=== PATIENT | female | born 1940 | race Caucasian/White ===

== ENCOUNTER 2018-03-12 06:02 | Day surgery (SDC) | payer MEDICARE, BC ==
[2018-03-11 11:34] LABS: BASOPHILS % (AUTO) 0.6 % (0-1); EOSINOPHILS # (AUTO) 0.3 X10'3 (0-0.9); EOSINOPHILS % (AUTO) 3.4 % (0-6); HEMATOCRIT 43.2 % (35.0-45.0); HEMOGLOBIN 14.4 g/dl (12.0-16.0); LYMPHOCYTES % (AUTO) 25.1 % (21-51); MEAN CORPUSCULAR HEMOGLOBIN 30.4 PG (27.0-31.0); MEAN CORPUSCULAR HGB CONC 33.2 % (33.0-36.5); MEAN CORPUSCULAR VOLUME 91.4 FL (78-98); MEAN PLATELET VOLUME 8.9 FL (7.4-10.4); MONOCYTES # (AUTO) 0.7 X10'3 (0-0.9); MONOCYTES % (AUTO) 9.6 % (2-12); NEUTROPHILS # (AUTO) 4.8 X10'3 (1.8-7.7); NEUTROPHILS % (AUTO) 61.3 % (42-75); PLATELET COUNT 265 X10'3 (140-440); RED BLOOD COUNT 4.72 X10'6 (4.20-5.60); RED CELL DISTRIBUTION WIDTH 13.8 % (11.5-14.5); WHITE BLOOD COUNT 7.8 X10'3 (4.5-11.0)
[2018-03-11 11:42] LABS: ALBUMIN 3.5 G/DL (3.4-5.0); ANION GAP 5 (8-16); BLOOD UREA NITROGEN 21 MG/DL (7-18); BUN/CREATININE RATIO 29.2 (6.6-38.0); CALCIUM 9.7 MG/DL (8.5-10.1); CHLORIDE 101 MMOL/L (99-107); CREATININE 0.72 MG/DL (0.40-0.90); GLUCOSE 104 MG/DL (70-104); POTASSIUM 3.9 MMOL/L (3.5-5.1); SODIUM 139 MMOL/L (135-145); TOTAL CARBON DIOXIDE 33.2 MMOL/L (24-32); eGFR 79 ML/MIN
[2018-03-11 11:45] LABS: INR 1.1 INR; PROTHROMBIN TIME 10.7 SECONDS (9.0-12.0)
[~2018-03-12] VITALS: Ht 160 cm; Wt 69.7 kg
[2018-03-12] VITALS (17 sets, daily range): BP systolic 109–190; BP diastolic 49–87
[2018-03-12] MEDS ORDERED: MIDAZolam 5mg/ml 2ml vial IV ONE (06:20)
[2018-03-12] MEDS ORDERED: LORazepam 0.5 MG tablet PO ONE (06:20)
[2018-03-12] MEDS ORDERED: diphenhydrAMINE 25mg capsule PO ONE (06:20)
[2018-03-12] MEDS ORDERED: morphine 10mg/ml inj. IV ONE (06:20)
[2018-03-12] MEDS ORDERED: atropine 0.1mg/ml 10ml syringe IV ONE (06:20)
[2018-03-12] MEDS ORDERED: normal saline 1000ml 1,000 ML IV SCH (06:20)
[2018-03-12] MEDS ORDERED: fentaNYL/PF 50MCG/1 ML 2ML syringe IV ONE (06:25)
[2018-03-12] MEDS ORDERED: MULT1CAP34 PO (06:35)
[2018-03-12] MEDS ORDERED: BIOT10004 (06:35)
[2018-03-12] MEDS ORDERED: METO-539 PO (06:35)
[2018-03-12] MEDS ORDERED: LISI-600 PO (06:35)
[2018-03-12] MEDS ORDERED: APIX5TAB3 PO (06:35)
[2018-03-12] MEDS ORDERED: TRIA1CAP6 PO (06:35)
[2018-03-12] MEDS ORDERED: LEVO125T PO (06:35)
== END 2018-03-12 11:50 | disposition home or self-care (01) ==
LOC: SSTAY O 06:02 → EDSTATUS 08:00 → SSTAY O 11:50
PROVIDERS: ATTEND Internal Medicine Cardiovascular Disease
DX: I48.1 Persistent atrial fibrillation (principal); I08.0 Rheumatic disorders of both mitral and aortic valves; I70.0 Atherosclerosis of aorta; I10 Essential (primary) hypertension; E78.5 Hyperlipidemia, unspecified; M85.88 Other specified disorders of bone density and structure, other site; M19.90 Unspecified osteoarthritis, unspecified site; K21.9 Gastro-esophageal reflux disease without esophagitis; E89.0 Postprocedural hypothyroidism; F10.21 Alcohol dependence, in remission; Z79.01 Long term (current) use of anticoagulants; Z90.49 Acquired absence of other specified parts of digestive tract; Z90.89 Acquired absence of other organs; Z88.3 Allergy status to other anti-infective agents; Z88.6 Allergy status to analgesic agent; Z88.2 Allergy status to sulfonamides; Z88.5 Allergy status to narcotic agent; Z87.01 Personal history of pneumonia (recurrent); Z87.09 Personal history of other diseases of the respiratory system; Z79.899 Other long term (current) drug therapy; Z98.890 Other specified postprocedural states; Z82.49 Family history of ischemic heart disease and other diseases of the circulatory system
CPT/HCPCS: 36415; 80048; 85025; 85610; 93005; 93312; J2250; J3010; J7030; Q0163; J0461

== ENCOUNTER 2020-12-25 15:58 | Outpatient (CLI) | payer MEDICARE, BC ==
[~2020-12-25 15:58] MED LIST: APIX5TAB3 PO; BIOT10004; LEVO125T PO; LISI20TA28 PO; METO-539 PO; MULT1CAP34 PO; TRIA1CAP6 PO
== END 2020-12-25 23:59 | disposition home or self-care (01) ==
LOC: CARD DIAG 15:58
PROVIDERS: ATTEND Internal Medicine Cardiovascular Disease
DX: I34.0 Nonrheumatic mitral (valve) insufficiency (principal); I48.91 Unspecified atrial fibrillation
CPT/HCPCS: 93306

== ENCOUNTER 2021-05-09 07:08 | Day surgery (SDC) | payer MEDICARE, BC ==
[2021-05-08 09:04] LABS: BASOPHILS % (AUTO) 0.7 % (0-1); EOSINOPHILS # (AUTO) 0.2 X10'3 (0-0.9); EOSINOPHILS % (AUTO) 2.5 % (0-6); HEMATOCRIT 38.3 % (35.0-45.0); HEMOGLOBIN 12.8 g/dl (12.0-16.0); LYMPHOCYTES # (AUTO) 1.7 X10'3 (1.1-4.8); MEAN CORPUSCULAR HEMOGLOBIN 28.6 PG (27.0-31.0); MEAN CORPUSCULAR HGB CONC 33.5 g/dL (33.0-36.5); MEAN CORPUSCULAR VOLUME 85.3 FL (78-98); MONOCYTES # (AUTO) 0.6 X10'3 (0-0.9); MONOCYTES % (AUTO) 10.3 % (2-12); NEUTROPHILS # (AUTO) 3.7 X10'3 (1.8-7.7); NEUTROPHILS % (AUTO) 59.5 % (42-75); PLATELET COUNT 299 X10'3 (140-440); RED BLOOD COUNT 4.49 X10'6 (4.20-5.60); RED CELL DISTRIBUTION WIDTH 15.2 % (11.5-14.5); WHITE BLOOD COUNT 6.3 X10'3 (4.5-11.0)
[2021-05-08 09:12] LABS: APTT 27 SECONDS (22-32)
[2021-05-08 09:17] LABS: ALBUMIN 3.7 G/DL (3.4-5.0); ANION GAP 8 (8-16); BLOOD UREA NITROGEN 14 MG/DL (7-18); BUN/CREATININE RATIO 19.2 (6.6-38.0); CALCIUM 9.6 MG/DL (8.5-10.1); CHLORIDE 98 MMOL/L (99-107); CREATININE 0.73 MG/DL (0.40-0.90); GLUCOSE 113 MG/DL (70-104); POTASSIUM 3.9 MMOL/L (3.5-5.1); SODIUM 135 MMOL/L (135-145); TOTAL CARBON DIOXIDE 28.9 MMOL/L (24-32); eGFR 77 ML/MIN
[2021-05-09] VITALS (10 sets, daily range): BP systolic 118–177; BP diastolic 53–77
[~2021-05-09] VITALS: Ht 160 cm; Wt 73.1 kg
[2021-05-09] MEDS ORDERED: diphenhydrAMINE 25mg capsule PO PRN (07:30)
[2021-05-09] MEDS ORDERED: normal saline 1,000 ML IV SCH (07:30)
[2021-05-09] MEDS ORDERED: methylPREDNISolone sod succ 125mg/2ml vial IV ONE (07:30)
[2021-05-09] MEDS ORDERED: LIDOcaine/PRILOcaine 5gm cream TP ONE (07:30)
[2021-05-09] MEDS ORDERED: OMEG1CAP46 PO (07:36)
[2021-05-09] MEDS ORDERED: verapamil 2.5 mg/ml inj IV ONE (09:21)
[2021-05-09] MEDS ORDERED: midazolam 1 mg/ML 2ml injection ONE (09:21)
[2021-05-09] MEDS ORDERED: fentaNYL/PF 50MCG/1 ML 2ML syringe ONE (09:21)
[2021-05-09] MEDS ORDERED: LIDOcaine 1% (10mg/ml)w/preservative injection 20ml MDV ONE (09:22)
[2021-05-09] MEDS ORDERED: iohexol 350 MG/ML 50ML vial IV ONE (09:22)
[2021-05-09] MEDS ORDERED: iohexol 350MG/ML 100ml bottle IV ONE (09:22)
[2021-05-09] MEDS ORDERED: heparin 1,000unit/ml 10ml vial 10 ML ONE (09:22)
[2021-05-09] MEDS ORDERED: nitroGLYCERIN-Tridil 50MG/D5W 250 ML IV ONE (09:28)
[2021-05-09 10:31] LABS: ISTAT HGB ART 12.9 g/dl (12.0-16.0); ISTAT Hct ART 38 %PCV (35-48); ISTAT O2 SATURATION ARTERIAL 97 % (95-98); ISTAT SOURCE ART
[2021-05-09] MEDS ORDERED: acetaminophen 325mg tablet PO PRN (11:25)
[2021-05-09] MEDS ORDERED: HYDROcodone/acetaminophen 10/325mg tab PO PRN (11:50)
[2021-05-09] MEDS ORDERED: HYDROcodone/acetaminophen 5mg/325mg tablet PO PRN (11:50)
[2021-05-09 11:52] LABS: ISTAT Hct MIX 37 %PCV (35-48); ISTAT O2 SATURATION MIX VENOUS 73 % (60-80); ISTAT SOURCE VEN
== END 2021-05-09 15:05 | disposition home or self-care (01) ==
LOC: SSTAY O 07:08
PROVIDERS: ATTEND Internal Medicine Cardiovascular Disease
DX: R06.02 Shortness of breath (principal); R53.83 Other fatigue; I25.10 Atherosclerotic heart disease of native coronary artery without angina pectoris; I11.0 Hypertensive heart disease with heart failure; I50.30 Unspecified diastolic (congestive) heart failure; I48.0 Paroxysmal atrial fibrillation; E78.5 Hyperlipidemia, unspecified; I47.1 Supraventricular tachycardia; Z72.89 Other problems related to lifestyle; Z88.8 Allergy status to other drugs, medicaments and biological substances
CPT/HCPCS: 36415; 76937; 80048; 82803; 85014; 85025; 85610; 85730; 93005; 93460; 99152; 99153; C1751; C1769; C1894; J1644; J2250; J2930; J3010; J3490; J7030; Q9967; A4620; A5120; A6258

== ENCOUNTER 2022-06-27 08:19 | Outpatient (CLI) | payer MEDICARE, BC ==
[2022-06-27] VITALS (10 sets, daily range): BP systolic 152–232; BP diastolic 69–125
[~2022-06-27 08:19] MED LIST changes: -METO-539 PO; +OMEG1CAP46 PO; -TRIA1CAP6 PO; +TRIA1CAP88 PO
== END 2022-06-27 23:59 | disposition home or self-care (01) ==
LOC: RAD 08:19
PROVIDERS: ATTEND Internal Medicine Cardiovascular Disease
DX: I50.22 Chronic systolic (congestive) heart failure (principal); R06.02 Shortness of breath; I48.91 Unspecified atrial fibrillation
CPT/HCPCS: 78452; 93017; A9500

== ENCOUNTER 2023-01-14 07:24 | Inpatient (IN) | payer MEDICARE, BC ==
[2023-01-07 10:01] LABS: BASOPHILS # (AUTO) 0.1 X10'3 (0-0.2); BASOPHILS % (AUTO) 1.1 % (0-1); EOSINOPHILS # (AUTO) 0.3 X10'3 (0-0.9); EOSINOPHILS % (AUTO) 3.6 % (0-6); LYMPHOCYTES # (AUTO) 1.5 X10'3 (1.1-4.8); LYMPHOCYTES % (AUTO) 19.9 % (21-51); MEAN CORPUSCULAR HEMOGLOBIN 27.9 PG (27.0-31.0); MEAN CORPUSCULAR HGB CONC 32.7 g/dL (33.0-36.5); MEAN CORPUSCULAR VOLUME 85.2 FL (78-98); MEAN PLATELET VOLUME 8.2 FL (7.4-10.4); MONOCYTES # (AUTO) 0.8 X10'3 (0-0.9); NEUTROPHILS # (AUTO) 4.9 X10'3 (1.8-7.7); NEUTROPHILS % (AUTO) 64.4 % (42-75); PRE OP HEMATOCRIT 38.8 % (35.0-45.0); PRE OP HEMOGLOBIN 12.7 g/dL (12.0-16.0); PRE OP PLATELET COUNT 293 X10'3 (140-440); PRE OP WHITE BLOOD COUNT 7.6 10'3 (4.8-10.8); RED BLOOD COUNT 4.55 X10'6 (4.20-5.60); RED CELL DISTRIBUTION WIDTH 15.2 % (11.5-14.5)
[2023-01-07 10:19] LABS: ALBUMIN 3.6 G/DL (3.4-5.0); ALBUMIN/GLOBULIN RATIO 0.9 (1.1-1.5); ALKALINE PHOSPHATASE 121 IU/L (46-116); BLOOD UREA NITROGEN 14 MG/DL (7-18); BUN/CREATININE RATIO 19.4 (10.0-20.0); CALCIUM 9.9 MG/DL (8.5-10.1); CHLORIDE 99 MMOL/L (99-107); CREATININE 0.72 MG/DL (0.40-0.90); PRE OP ALT 44 U/L (30-65); PRE OP ANION GAP 6 (8-16); PRE OP AST 31 U/L (10-37); PRE OP BILIRUB, TOTAL 0.6 MG/DL (0.0-1.0); PRE OP GLUCOSE 127 MG/DL (70-104); PRE OP POTASSIUM 3.7 MMOL/L (3.4-5.1); PRE OP SODIUM 135 MMOL/L (135-145); TOTAL CARBON DIOXIDE 30.2 MMOL/L (24-32); TOTAL PROTEIN 7.8 G/DL (6.4-8.2); eGFR 78 ML/MIN
[~2023-01-14] VITALS: Ht 160 cm; Wt 74.6 kg
[2023-01-14] VITALS (33 sets, daily range): BP systolic 113–170; BP diastolic 54–105; PULSE 73–112; RESP 8–23; TEMP 97.8–98.9; O2SAT 83–98
[~2023-01-14 07:24] MED LIST changes: -BIOT10004; +BIOT10004 PO; +CHOL20004 PO; +FURO20TA4 PO; -LISI20TA28 PO; +LISI40TA13 PO; +cefazolin 2gm/D5W 100mL 100 ML IV ONE; +famotidine 20mg tablet PO ONE
[2023-01-14] MEDS: ringers solution, lacted 1,000 ML IV SCH ×2 (08:25→15:37)
[2023-01-14] MEDS ORDERED: BUPIVAcaine/PF 2.5 mg/ml (0.25%) 30ml vial ONE (09:09)
[2023-01-14] MEDS ORDERED: LIDOcaine 1% 30ml preserv. free vial ONE (09:09)
[2023-01-14] MEDS ORDERED: sevoflurane 250ml liquid IH ONE (09:18)
[2023-01-14] MEDS ORDERED: midazolam 1 mg/ML 2ml injection ONE (09:25)
[2023-01-14] MEDS ORDERED: fentaNYL/PF 50MCG/1 ML 2ML syringe ONE (09:25)
[2023-01-14] MEDS ORDERED: hydrALAZINE 20mg/ml inj. IV PRN ×2 (09:40→12:05)
[2023-01-14] MEDS ORDERED: proCHLORperazine 10 MG/2 ml inj IV PRN (09:40)
[2023-01-14] MEDS ORDERED: labetalol 20mg/4ml (5mg/ml) syringe IV PRN (09:40)
[2023-01-14] MEDS ORDERED: acetaminophen 1,000mg/100ml IV 100 ML IV PRN (09:40)
[2023-01-14] MEDS ORDERED: fentaNYL/PF 50MCG/1 ML 2ML syringe IV PRN (09:40)
[2023-01-14] MEDS ORDERED: ondansetron/PF 4mg/2ml inj IV PRN (09:40)
[2023-01-14] MEDS ORDERED: HYDROmorphone/PF 0.2 MG/ML SYRINGE IV PRN (09:40)
[2023-01-14] MEDS ORDERED: ringers solution, lacted 1,000 ML IV SCH (09:40)
[2023-01-14] MEDS ORDERED: dexamethasone sod phosphate 4mg/ml inj. ONE (09:47)
[2023-01-14] MEDS ORDERED: propofol inj 20 ML IV ONE (09:47)
[2023-01-14] MEDS ORDERED: ondansetron/PF 4mg/2ml inj ONE (09:47)
[2023-01-14] MEDS ORDERED: LIDOcaine 2% (20mg/ml) 5ml vial ONE (09:47)
[2023-01-14] MEDS ORDERED: rocuronium 10mg/ml inj IV ONE (09:47)
[2023-01-14] MEDS ORDERED: ePHEDrine 50MG/ML INJ. ONE ×2 (10:08→11:25)
[2023-01-14] MEDS ORDERED: neostigmine methylsulfate 1 MG/ML 10ml vial ONE ×2 (11:21→11:25)
[2023-01-14] MEDS ORDERED: glycopyrrolate 0.2mg/ml inj ONE ×2 (11:21→11:25)
--- NOTE | 2023-01-14 11:40 | NUR ---
PT ARRIVED TO RR VIA BED ACCOMPANIED BY DR. OCHOA-ANESTHESIA REPORT GIVEN, PT AWAKE AND PAINFUL, TAKING SHALLOW BREATHS D/T PAIN, VSS, DERMABOND TO LAP SITES X4 - CDI, F/C PLACED IN OR AND DRAINING YELLOW URINE, NEURO INTACT.
[2023-01-14] MEDS: fentaNYL/PF 50MCG/1 ML 2ML syringe IV PRN ×2 (12:00→12:08)
[2023-01-14] MEDS ORDERED: naloxone 0.4 mg/ml inj IV PRN (12:00)
[2023-01-14] MEDS: HYDROmorphone/PF 0.2 MG/ML SYRINGE IV PRN ×2 (12:14→12:51)
--- NOTE | 2023-01-14 13:34 | NUR ---
PT AWAKE, VSS, PT PAIN A BIT BETTER BUT SHARP PAIN TO LEFT SHOULDER/BACK BUT STILL 7/10 WHEN IT COMES, PT ABLE TO RELAX A BIT IN BETWEEN AND NOT WANTING ANY MORE NARCOTIC AT THIS TIME. TOLERATING ICE WATER, DILAUDID VEHICLE WINDOW TINTER ORDERED AND WILL BE SET UP.
[2023-01-14] MEDS: HYDROmorph/NS 0.2 mg/ml PCA 100 ML IV SCH ×7 (14:05→23:00)
--- NOTE | 2023-01-14 14:50 | NUR ---
PT VSS, PAIN MANAGEABLE WHEN ABLE TO RELAX AND BREATHE DEEP BUT OFTEN HAS SPASMS OF SHARP PAINS IN UPPER LEFT BACK AND SHOULDER - DILAUDID CADD HOOKED UP AND PT HAS BEEN EDUCATED REGARDING USE, PT UNDERSTANDS BUT IS HESITANT TO USE NARCOTIC BC IT MAKES HER FEEL "DRUGGED". LAP SITES - CDI, F/C-DRAINING, TOLERATING CLEAR LIQUIDS, REPORT CALLED TO CIVIL CLERK-ALL QUESTIONS ANSWERED, TAKEN WITH ALL BELONGINGS TO ROOM-COMPLAINT OF NAUSEA UPON ARRIVAL TO FLOOR, ABLE TO GIVE PT IV ZOFRAN BEFORE LEAVING PT UPSTAIRS, FAMILY IN ROOM, CIVIL CLERK IN TO RECEIVE PT.
[2023-01-14] MEDS: normal saline 1000ml 1,000 ML IV SCH ×2 (15:36→18:02)
--- NOTE | 2023-01-14 18:00 | NUR ---
I have reviewed and agree with interventions, assessments, and documentation by Astrid Berrios LVN.
--- NOTE | 2023-01-14 18:35 | NUR ---
Patient in room ORTHO 4022. I have received report from Astrid Orellana and had the opportunity to ask questions and assume patient care.
--- NOTE | 2023-01-14 19:00 | NUR ---
Patient states that she had a couple of mouthfulls of broth only as was feeling nauseated. Addendum: 01/15/23 at 0648 by Sharmila Jones RN Amended: Links added.
[2023-01-14] MEDS: ondansetron/PF 4mg/2ml inj IV PRN (20:14)
[2023-01-14] MEDS: lisinopril 20mg tablet PO SCH (20:49)
[2023-01-15] VITALS (7 sets, daily range): BP systolic 116–154; BP diastolic 55–79; PULSE 68–89; RESP 15–18; TEMP 97.9–99.2; O2SAT 89–97
[2023-01-15] MEDS: HYDROmorph/NS 0.2 mg/ml PCA 100 ML IV SCH ×5 (01:00→09:00)
[2023-01-15] MEDS ORDERED: proMETHazine 25mg rectal suppository RC PRN (01:10)
[2023-01-15] MEDS: ondansetron/PF 4mg/2ml inj IV PRN (04:01)
--- NOTE | 2023-01-15 06:45 | NUR ---
Problems reprioritized. Patient report given, questions answered & plan of care reviewed with Jeanna BAEZ.
--- NOTE | 2023-01-15 06:50 | NUR ---
Patient in room ORTHO 4022. I have received report from NESTOR Doll and had the opportunity to ask questions and assume patient care.
--- NOTE | 2023-01-15 08:00 | NUR ---
notified pharmacy medication Maxzide is not in patient specific bin. Will continue to wait on medication being brought to the floor.
[2023-01-15] MEDS: levoTHYROXINE 125mcg tablet PO SCH (08:02)
[2023-01-15] MEDS: lisinopril 20mg tablet PO SCH ×2 (08:02→19:54)
[2023-01-15] MEDS: enoxaparin 40mg/0.4ml syringe SQ SCH (08:03)
[2023-01-15] MEDS: furosemide 20MG tablet PO SCH (08:03)
[2023-01-15] MEDS ORDERED: oxyCODONE/APAP 5-325mg tablet PO PRN (10:50)
--- NOTE | 2023-01-15 10:52 | NUR ---
Received orders from Dr Franks to PIOT[facility] Boyle, Start on Percocet 5/325 Q4h prn and advance diet to Full Liquid diet.
[2023-01-15] MEDS: triamterene/HCTZ 37.5/25mg tablet PO SCH (13:08)
[2023-01-15] MEDS ORDERED: PCA WASTE DOCUMENTATION 1 MG ML MC SCH (13:15)
--- NOTE | 2023-01-15 16:01 | NUR ---
Nutrition Consult "post-anjelica diet": Pt s/p anjelica fundoplication surgeon requests JONAH post-op diet progression ed. Pt seen by RD at bedside for written/verbal post-anjelica diet advancement ed w/ RD contact information and Ensure ONS coupons provided. Pt voiced no questions/concerns after ed. RD encouraged pt to contact dietitian's office if further nutrition questions/concerns. Addendum: 01/15/23 at [address] Amended: Links added.
[2023-01-15] MEDS: acetaminophen w/codeine (30MG) #3 tablet PO PRN (17:55)
--- NOTE | 2023-01-15 18:15 | NUR ---
Problems reprioritized. Patient report given, questions answered & plan of care reviewed with MARGARET Whitley.
[2023-01-16] MEDS: acetaminophen w/codeine (30MG) #3 tablet PO PRN ×4 (00:53→14:14)
--- NOTE | 2023-01-16 04:30 | NUR ---
Reviewed CONFERENCE ASSISTANT assessment. Edited per my observations
[2023-01-16 06:00] VITALS: BP 164/83; PULSE 105; RESP 20; TEMP 98.1; O2SAT 95
--- NOTE | 2023-01-16 06:43 | NUR ---
Patient in room ORTHO 4015. I have received report from MARGARET Whitley and had the opportunity to ask questions and assume patient care.
[2023-01-16] MEDS: levoTHYROXINE 125mcg tablet PO SCH (08:47)
[2023-01-16] MEDS: lisinopril 20mg tablet PO SCH (08:47)
[2023-01-16] MEDS: furosemide 20MG tablet PO SCH (08:48)
[2023-01-16] MEDS: triamterene/HCTZ 37.5/25mg tablet PO SCH (08:48)
[2023-01-16] MEDS: enoxaparin 40mg/0.4ml syringe SQ SCH (08:50)
[2023-01-16 10:00] VITALS: BP 157/66; PULSE 88; RESP 16; TEMP 98.9; O2SAT 90
[2023-01-16 10:47] VITALS: RESP 15
[2023-01-16] MEDS ORDERED: ACET-1 PO (13:25)
--- NOTE | 2023-01-16 14:55 | NUR ---
pt given discharge packet, was able to ask/ answer questions in regards to discharge and care. Pt is stable and in no distress. Pt left with all of her belongings in a wheelchair down to the lobby. Pt left in a private vehicle with and daughter.
== END 2023-01-16 14:55 | disposition home or self-care (01) | DRG 328 ==
LOC: PAS 07:24 → PAS IN 12:00 → OBSVTOIN 12:00 → ORTHO 4S 15:00
PROVIDERS: ADMIT Surgery; ATTEND Surgery
PROC: 3E0M45Z Introduction of Adhesion Barrier into Peritoneal Cavity, Percutaneous Endoscopic Approach (ICD-10-PCS; 2023-01-14)
PROC: 8E0W4CZ Robotic Assisted Procedure of Trunk Region, Percutaneous Endoscopic Approach (ICD-10-PCS; 2023-01-14)
PROC: 0DQ64ZZ Repair Stomach, Percutaneous Endoscopic Approach (ICD-10-PCS; 2023-01-14)
PROC: 0BUT4JZ Supplement Diaphragm with Synthetic Substitute, Percutaneous Endoscopic Approach (ICD-10-PCS; principal; 2023-01-14 09:18)
DX: K44.9 Diaphragmatic hernia without obstruction or gangrene (principal)
CPT/HCPCS: 36415; 71045; 80053; 82948; 85025; 93005; 94668; A4615; A4618; C1758; C1781; G0378; J0131; J0690; J1100; J1170; J1650; J2250; J2405; J2704; J2710; J3010; J3490; J7030; J7120

== ENCOUNTER 2024-09-02 07:01 | Day surgery (SDC) | payer MEDICARE, BC ==
[2024-09-01 16:07] LABS: BASOPHILS # (AUTO) 0.1 X10'3 (0-0.2); BASOPHILS % (AUTO) 0.7 % (0-1); EOSINOPHILS # (AUTO) 0.3 X10'3 (0-0.9); EOSINOPHILS % (AUTO) 3.1 % (0-6); HEMATOCRIT 40.4 % (35.0-45.0); HEMOGLOBIN 14.2 g/dl (12.0-16.0); LYMPHOCYTES # (AUTO) 1.9 X10'3 (1.1-4.8); LYMPHOCYTES % (AUTO) 21.5 % (21-51); MEAN CORPUSCULAR HEMOGLOBIN 31.5 PG (27.0-31.0); MEAN PLATELET VOLUME 8.4 FL (7.4-10.4); MONOCYTES # (AUTO) 0.7 X10'3 (0-0.9); MONOCYTES % (AUTO) 8.2 % (2-12); NEUTROPHILS # (AUTO) 5.9 X10'3 (1.8-7.7); NEUTROPHILS % (AUTO) 66.5 % (42-75); PLATELET COUNT 283 X10'3 (140-440); RED BLOOD COUNT 4.49 X10'6 (4.20-5.60); RED CELL DISTRIBUTION WIDTH 13.3 % (11.5-14.5); WHITE BLOOD COUNT 8.9 X10'3 (4.5-11.0)
[2024-09-01 16:21] LABS: INR 1.1 INR; PROTHROMBIN TIME 10.9 SECONDS (9.0-12.0)
[2024-09-01 16:22] LABS: ALBUMIN 3.8 G/DL (3.4-5.0); ANION GAP 10 (8-16); BLOOD UREA NITROGEN 14 MG/DL (7-18); BUN/CREATININE RATIO 18.7 (10.0-20.0); CALCIUM 9.6 MG/DL (8.5-10.1); CHLORIDE 98 MMOL/L (99-107); CREATININE 0.75 MG/DL (0.40-0.90); GLUCOSE 141 MG/DL (70-104); POTASSIUM 3.4 MMOL/L (3.5-5.1); SODIUM 138 MMOL/L (135-145); TOTAL CARBON DIOXIDE 30.5 MMOL/L (24-32); eGFR 74 ML/MIN
[~2024-09-02] VITALS: Ht 162.6 cm; Wt 72.1 kg
[2024-09-02] VITALS (11 sets, daily range): BP systolic 117–160; BP diastolic 56–88; PULSE 62–114; RESP 11–17; TEMP 98.3; O2SAT 93–100
[~2024-09-02 07:01] MED LIST changes: +ACET-1 PO; -cefazolin 2gm/D5W 100mL 100 ML IV ONE; -famotidine 20mg tablet PO ONE
[2024-09-02] MEDS ORDERED: LORazepam 0.5 MG tablet PO ONE (07:30)
[2024-09-02] MEDS ORDERED: normal saline 1000ml 1,000 ML IV SCH (07:30)
[2024-09-02] MEDS ORDERED: diphenhydrAMINE 25mg capsule PO ONE (07:30)
[2024-09-02] MEDS ORDERED: MIDAZolam 1mg/ml 10ml vial IV ONE (07:30)
[2024-09-02] MEDS ORDERED: morphine 10mg/ml inj. IV ONE (07:30)
[2024-09-02] MEDS ORDERED: atropine 0.1mg/ml 10ml syringe IV ONE (07:30)
[2024-09-02] MEDS ORDERED: fentaNYL/PF 50MCG/1 ML 2ML syringe IV ONE (07:35)
--- NOTE | 2024-09-02 07:38 | ELECTROCARDIOGRAPH REPORT ---
[facility] Test Date: 2024-09-02 Test Time: 07:37:11 Pat Name: NEW KELLY Department: [facility] Patient ID: [facility]-[id number] Room: Gender: F Enterprise Application Developer: : 1940 Requested By: HERSON LION Order Number: [id number] Reading MD: Dr. MICHAEL Lion Measurements Intervals [place] Rate: 115 P: 71 HI: 144 QRS: 2 QRSD: 99 T: 28 QT: 359 QTc: 497 Interpretive Statements Sinus tachycardia Minimal ST depression, anterolateral leads Borderline prolonged QT interval Electronically Signed On 09-02-2024 9:37:[address] MICHAEL Lion Please click the below link to view image of tracing.
[2024-09-02] MEDS ORDERED: MAGN400C PO (08:19)
[2024-09-02] MEDS ORDERED: LISI10TA27 PO (08:19)
[2024-09-02] MEDS ORDERED: ATEN50TA8 PO (08:19)
[2024-09-02] MEDS ORDERED: FLEC50TA PO (08:19)
[2024-09-02] MEDS ORDERED: midazolam 1 mg/ML 2ml injection ONE ×2 (08:36→08:44)
[2024-09-02] MEDS ORDERED: fentaNYL/PF 50MCG/1 ML 2ML syringe ONE ×2 (08:37→08:44)
[2024-09-02] MEDS ORDERED: LIDOcaine 2% (20 mg/ml) 5ml cardiac syringe ONE (08:37)
--- NOTE | 2024-09-02 09:41 | ELECTROCARDIOGRAPH REPORT ---
[facility] Test Date: 2024-09-02 Test Time: 09:40:01 Pat Name: NEW KELLY Department: [facility] Patient ID: [id number] Room: Gender: F Medical Front Desk Specialist: JIM : 1940 Requested By: HERSON LION Order Number: [id number] Reading MD: Dr. MICHAEL Lion Measurements Intervals [place] Rate: 65 P: 50 [place]: 193 QRS: 6 QRSD: 98 T: 10 QT: 444 QTc: 462 Interpretive Statements Sinus rhythm Electronically Signed On 09-02-2024 17:23:[address] MICHAEL Lion Please click the below link to view image of tracing.
--- NOTE | 2024-09-03 00:37 | CARDIOLOGY REPORT ---
DATE OF SERVICE: 09/02/2024 DICTATING PHYSICIAN: MICHAEL Aragon MD ELECTRICAL CARDIOVERSION REPORT INDICATIONS: The patient was seen here with history of hypertension, hyperlipidemia, sleep apnea, CAD, and sick sinus syndrome with PAF. History of PAF dates back to 04/27/2015. Over the years, she was also being seen by Dr. Mack. Apparently, she has had 3 cardiac ablations. The patient had an ablation done by Dr. Mack back on 11/17/2017. The patient had a second ablation on 03/07/2018. She had a third ablation on 04/12/2018. She had fourth ablation on 07/02/2018 and her medications were stopped after the fourth ablation. She developed persistent AF on 07/27/2018 and she reverted to normal sinus rhythm with Cardizem and flecainide. She had a cardioversion on 08/05/2018. On 01/19, there was some episode of SVT. The patient in July was found to be in atrial flutter with 2:1 block. After discussing risks, benefits, alternatives, she wants to undergo electrical cardioversion. Risks, benefits, and alternative options discussed, informed consent obtained. The patient is intolerant on most medications. She is on atenolol. She is on apixaban 5 mg p.o. b.i.d., flecainide 25 mg p.o. b.i.d., and atenolol 25 mg p.o. daily. DESCRIPTION OF PROCEDURE: Anterior and posterior patches were used. Using biphasic electrical energy 150 joules x 1, converted to normal sinus rhythm. The patient remained in the heart rate was in the mid 50s. IMPRESSION: An 84-year-old female with recurrent episodes of atrial fibrillation and flutter with prior history of 4 ablations. Had recurrence of flutter 2:1 block. Successfully cardioverted to normal sinus rhythm. The patient has an upcoming appointment with Dr. Mack. RECOMMENDATIONS: In the meantime, continue atenolol, flecainide, and apixaban. The patient does not want to take any higher dose because of side effects. MICHAEL Aragon MD TID: [id number] RECEIPT: [id number] /ILAN/ARIS cc: Dr. Martina BATES
== END 2024-09-02 11:26 | disposition home or self-care (01) ==
LOC: SSTAY O 07:01
PROVIDERS: ATTEND Internal Medicine Cardiovascular Disease
DX: I48.92 Unspecified atrial flutter (principal); I25.10 Atherosclerotic heart disease of native coronary artery without angina pectoris; I10 Essential (primary) hypertension; E78.5 Hyperlipidemia, unspecified; I48.19 Other persistent atrial fibrillation; I49.5 Sick sinus syndrome; I47.10 Supraventricular tachycardia, unspecified; G47.30 Sleep apnea, unspecified; Z79.899 Other long term (current) drug therapy; Z79.01 Long term (current) use of anticoagulants
CPT/HCPCS: 36415; 80048; 85025; 85610; 92960; 93005; J2250; J3010; J7030; 99152; J3490

== ENCOUNTER 2024-10-27 09:10 | Day surgery (SDC) | payer MEDICARE, BC ==
[2024-10-26 13:43] LABS: MEAN PLATELET VOLUME 8.1 FL (7.4-10.4); RED CELL DISTRIBUTION WIDTH 13.3 % (11.5-14.5)
[2024-10-26 13:53] LABS: APTT 29 SECONDS (22-32); INR 1.0 INR
[2024-10-26 13:56] LABS: CREATININE 0.68 MG/DL (0.40-0.90); TOTAL CARBON DIOXIDE 32.7 MMOL/L (24-32); eGFR 83 ML/MIN
[~2024-10-27] VITALS: Ht 160 cm; Wt 72.4 kg
[2024-10-27] VITALS (11 sets, daily range): BP systolic 131–155; BP diastolic 61–107; PULSE 63–96; RESP 11–15; O2SAT 95–97
[~2024-10-27 09:10] MED LIST changes: -ACET-1 PO; +ATEN50TA8 PO; +FLEC50TA PO; +LISI10TA27 PO; -LISI40TA13 PO; +MAGN400C PO
[2024-10-27] MEDS ORDERED: ceFAZolin 2,000MG in D5W 50mL IV ONE (09:40)
[2024-10-27] MEDS ORDERED: LIDOcaine 1% W/epiNEPHrine 1:100,000 20ml vial ONE (09:44)
[2024-10-27] MEDS ORDERED: midazolam 1 mg/ML 2ml injection ONE ×2 (09:44→12:03)
[2024-10-27] MEDS ORDERED: fentaNYL/PF 50MCG/1 ML 2ML syringe ONE (09:44)
--- NOTE | 2024-10-27 09:48 | ELECTROCARDIOGRAPH REPORT ---
[facility] Test Date: 2024-10-27 Test Time: 09:45:51 Pat Name: NEW KELLY Department: [facility] Patient ID: [facility]-[id number] Room: Gender: F Prepress Manager: JIM : 1940 Requested By: HERSON LION Order Number: [id number] Reading MD: Dr. MICHAEL Lion Measurements Intervals [place] Rate: 63 P: -26 HI: 115 QRS: 24 QRSD: 93 T: 29 QT: 447 QTc: 458 Interpretive Statements Sinus rhythm Borderline short HI interval Minimal ST depression, anterolateral leads Electronically Signed On 10-27-2024 16:38:[address] MICHAEL Lion Please click the below link to view image of tracing.
[2024-10-27] MEDS ORDERED: LISI20TA28 PO (09:50)
[2024-10-27] MEDS ORDERED: HYDROcodone/acetaminophen 5mg/325mg tablet PO PRN (13:15)
[2024-10-27] MEDS ORDERED: HYDROcodone/acetaminophen 10/325mg tab PO PRN (13:15)
[2024-10-27] MEDS: vancomycin/NS 1 GM ADD-VANTAGE 250 ML IV ONE (14:02)
[2024-10-27] MEDS: normal saline 1000ml 1,000 ML IV PRN (14:02)
--- NOTE | 2024-10-27 15:01 | RADIOLOGY REPORT ---
EXAM: DI CHEST,TWO VIEWS CLINICAL HISTORY: post pacemaker procedure COMPARISON: None TECHNIQUE: Frontal and lateral view of the chest was obtained FINDINGS: Lines and Tubes: Cardiac pacemaker projects over left chest wall. Lungs: No focal consolidation. Pleura: No effusion. No pneumothorax. Cardiomediastinal contours: Unremarkable Bones: No acute osseous abnormality. IMPRESSION: No acute cardiopulmonary disease.
[2024-10-27] MEDS: acetaminophen w/codeine (30MG) #3 tablet PO ONE (15:35)
[2024-10-27] MEDS ORDERED: CEPH-585 PO (16:26)
--- NOTE | 2024-10-28 08:03 | CARDIOLOGY REPORT ---
DATE OF SERVICE: 10/27/2024 DICTATING PHYSICIAN: MICHAEL Aragon MD PERMANENT PACEMAKER IMPLANTATION REPORT PRIMARY PHYSICIAN: Dr. James Vicente HUMAN SERVICES INSTRUCTOR: MICHAEL Aragon MD GENDER: Female. AGE: 84 years. HEIGHT: 160 cm. WEIGHT: 72.4 kg. BODY SURFACE AREA: 1.76 m2. INDICATIONS: The patient is an 84-year-old postmenopausal female with history of hypertension, hyperlipidemia, obstructive sleep apnea, sick sinus syndrome, PAF, SVT, and CAD. The patient lately has been having increasing shortness of breath, fatigue, and bradycardic episodes. On 10/27/2024 shows the lowest heart rate of 37 per minute with episodes of SVT as well. After discussing risks, benefits and alternative options, the patient prefers to proceed with permanent pacemaker implantation. Risks, benefits, and alternative options were discussed. Informed consent was obtained. PROCEDURES: * Fluoroscopy. * AV sequential pacemaker implantation. * Conscious sedation time of 60 minutes. DESCRIPTION OF PROCEDURE: Left infraclavicular area was prepped and draped in the usual fashion. _ Two separate accesses were obtained to left subclavian vein using percutaneous Seldinger technique using micro puncture wire Similarly left clavicle. The pacemaker pocket was fashioned in the subcutaneous plane External ends of the J-wires were retrieved into the pacemaker pocket. Two 7-Italian sheaths were advanced over the J-wires. Through one of them, RV lead advanced to the RV apex, screwed into the RV apex. Appropriate pacing and sensing thresholds obtained. Sheath was removed by peel-away technique. Through the second 7-Italian sheath, the right atrial lead was advanced. J-wire was formed, screwed into the right atrial appendage. Leads connected to the appropriate sockets of the pulse generator. . Appropriate pacing and sensing thresholds obtained. Sheath removed in peel-away technique. The pacemaker was suspended into the pacemaker pocket. The pocket was closed with interrupted 2-0 Vicryl, followed by interrupted . Syed applied. The patient tolerated the procedure well. No complications. DEVICE USED: MRI-compatible Medtronic [place] PPM, model #W3DR01, serial number [id number], [employer]onic, 10/27/2024, left pectoral location. RIGHT ATRIAL LEAD: Model #4076, 52 cm long, serial [id number], [employer]onic, 10/27/2024, right atrial appendage, R-wave amplitude 1.8 mV, 495 ohms impedance, pacing threshold of 0.75 at 0.4 msec. RV LEAD: Model #5076, 58 cm in length, serial #[id number], 10/27/2024, RV apex, R-wave amplitude 2.7 mV, 827 ohms of impedance, pacing threshold of 0.75 volt at 0.4 msec. IMPRESSION: An 84-year-old female with sick sinus syndrome, symptomatic tachy-ken episode, underwent successful AV sequential pacemaker implantation with no complications. MICHAEL Aragon MD TID: [id number] RECEIPT: [id number] OMER/RISHI/CHIKA BATES
== END 2024-10-27 18:10 | disposition home or self-care (01) ==
LOC: SSTAY O 09:10
PROVIDERS: ATTEND Internal Medicine Cardiovascular Disease
DX: I49.5 Sick sinus syndrome (principal); I11.0 Hypertensive heart disease with heart failure; I48.0 Paroxysmal atrial fibrillation; E78.5 Hyperlipidemia, unspecified; I25.10 Atherosclerotic heart disease of native coronary artery without angina pectoris; I47.10 Supraventricular tachycardia, unspecified; I48.92 Unspecified atrial flutter; E03.9 Hypothyroidism, unspecified; K21.9 Gastro-esophageal reflux disease without esophagitis; I50.30 Unspecified diastolic (congestive) heart failure; I27.29 Other secondary pulmonary hypertension; G47.33 Obstructive sleep apnea (adult) (pediatric); M19.90 Unspecified osteoarthritis, unspecified site; Z79.899 Other long term (current) drug therapy; Z98.890 Other specified postprocedural states; Z88.8 Allergy status to other drugs, medicaments and biological substances; Z90.49 Acquired absence of other specified parts of digestive tract
CPT/HCPCS: 33208; 36415; 71046; 80048; 85025; 85610; 85730; 93005; 99152; 99153; A4565; A6402; C1785; C1898; J0690; J1200; J2250; J3010; J3370; J3490; J7030; Z7610; A6449

== ENCOUNTER 2025-03-15 14:48 | Outpatient (CLI) | payer MEDICARE, BC ==
[~2025-03-15 14:48] MED LIST changes: -ATEN50TA8 PO; +CEPH-585 PO; -LISI10TA27 PO; +LISI20TA28 PO
--- NOTE | 2025-03-15 21:09 | RADIOLOGY REPORT ---
EXAM: MR MRI LOWER EXTREMITY RIGHT HISTORY: STIFFNESS OF RIGHT KNEE, NOT ELSEWHERE CLASSIFIED COMPARISON: None TECHNIQUE: Multiplanar, multisequence imaging of the right knee was performed without contrast FINDINGS: MEDIAL COMPARTMENT: Longitudinal vertical tearing of the inner 1/3 of the central body of the medial meniscus. Complete radial type tear of the posterior root of the medial meniscus. Subsequent minimal medial meniscal extrusion. No focal chondrosis or subchondral edema. LATERAL COMPARTMENT: Intact lateral meniscus. No focal chondrosis or subchondral edema. PATELLOFEMORAL COMPARTMENT: Broad-base diffuse cartilage thinning of the patellofemoral compartment. CRUCIATE LIGAMENTS: Suspected developing mucoid degeneration of the anterior cruciate ligament posterior cruciate ligament is intact alternatively, consideration for sequelae of prior injury and submucosal with granulation tissue. No definitive full-thickness tear component. MEDIAL SUPPORTING STRUCTURES: Intact medial collateral ligament. LATERAL SUPPORTING STRUCTURES: Intact iliotibial band, lateral capsular ligament, fibular collateral ligament, popliteus, and biceps femoris tendons. Trace fluid along distal popliteus EXTENSOR MECHANISM: Intact JOINT SPACE/FLUID: Small knee joint effusion. Sequelae of semimembranosus bursitis BONES: No acute fracture, osseous contusion, or aggressive focal osseous lesion MUSCLES: Normal in signal intensity and morphology NEUROVASCULAR: Superficial varicosities OTHER: None IMPRESSION: 1. Longitudinal vertical tearing of the inner 1/3 of the central body of the medial meniscus. 2. Complete radial type tear of the posterior root of the medial meniscus. 3. Subsequent minimal medial meniscal extrusion. 4. Suspected developing mucoid degeneration of the anterior cruciate ligament posterior cruciate ligament is intact alternatively, consideration for sequelae of prior injury and submucosal with granulation tissue. 5. No definitive full-thickness tear component. 6. Small knee joint effusion. 7. Sequelae of semimembranosus bursitis.
== END 2025-03-15 23:59 | disposition home or self-care (01) ==
LOC: MRI 14:48
PROVIDERS: ATTEND Nurse Practitioner Family
DX: S83.241A Other tear of medial meniscus, current injury, right knee, initial encounter (principal); M25.561 Pain in right knee; M25.661 Stiffness of right knee, not elsewhere classified; M17.11 Unilateral primary osteoarthritis, right knee; M25.461 Effusion, right knee; X58.XXXA Exposure to other specified factors, initial encounter; Y93.89 Activity, other specified; Y92.89 Other specified places as the place of occurrence of the external cause; Y99.8 Other external cause status
CPT/HCPCS: 73721